=== PATIENT | female | born 1975 | race Caucasian/White ===

== ENCOUNTER 2016-11-01 01:15 | Emergency (ER) | payer MEDICAID ==
[~2016-11-01] VITALS: Ht 157.5 cm; Wt 63.5 kg
[2016-11-01 01:25] VITALS: BP 121/80
== END 2016-11-01 08:50 | disposition left against medical advice (07) ==
LOC: ER 01:15
DX: R07.89 Other chest pain (principal); R11.2 Nausea with vomiting, unspecified; R42 Dizziness and giddiness; R06.02 Shortness of breath; Z53.21 Procedure and treatment not carried out due to patient leaving prior to being seen by health care provider